=== PATIENT | male | born 1945 | race Caucasian/White ===

== ENCOUNTER 2017-03-26 19:32 | Day surgery (SDC) | payer MEDICARE, OTHER ==
[~2017-03-26] VITALS: Ht 195.6 cm; Wt 95.5 kg
[~2017-03-26 19:32] MED LIST: ACET-1890 PO; ESCI20TA PO; LISI1TAB7 PO; QUET200T PO
[2017-03-26] MEDS ORDERED: Succinylcholine Chloride 20 mg/mL 5 mL Inj ONE (19:33)
[2017-03-26] MEDS ORDERED: Propofol 10,000 mCg/mL 20 mL Inj ONE (19:33)
[2017-03-26 19:38] VITALS: BP 157/91; PULSE 72; RESP 17; O2SAT 98
--- NOTE | 2017-03-26 20:36 | ED.REPORT ---
HPI-General Illness Date of Service Mar 26, 2017 ED Provider: Ji Nolberto Patient is a 71 year old male who presents to the ED after being referred by urgent care complaining of food bolus being stuck in his throat for the past few hours. He was eating roast beef when the incident occurred and is now unable to swallow his saliva. He denies abdominal pain, trouble breathing, or any other symptoms. He has had similar symptoms previously and had his "esophagus stretched" in January. Nursing Notes Stated Complaint: FOOD/FLUIDS STICKING IN THROAT/[facility] Chief Complaint: General Complaint Nursing Notes Reviewed: Yes Allergies: Coded Allergies: No Known Allergies (Verified , 03/26/17) Scheduled Acetaminophen (Tylenol) 325 Mg Tablet 325 MG PO DAILY Atenolol (Atenolol) 25 Mg Tablet 25 MG PO DAILY Escitalopram Oxalate (Lexapro) 20 Mg Tablet 20 MG PO HS Lisinopril / HCTZ 10-12.5 mg (Lisinopril / HCTZ 10-12.5 mg) 1 Each Tablet 1 EACH PO HS Quetiapine Fumarate (Seroquel) 200 Mg Tablet 600 MG PO HS General Time Seen by MD: 20:36 Chief Complaint Other (Dysphagia) Hx Obtained From: Patient Arrived By: Walk-in Sudden in Onset?: Yes Onset Occurred: 1 - 4 hours ago Symptom Duration: Since onset Similar Sx Previous: Yes Past Medical History Past Medical History PTSD anxiety Reports: GERD, Hypertension Past Surgical History L hip replacement Brain tumor removal Kidney stone removal Hernia repair Family History Noncontributory Smoking History Former Smoker Social History Alcohol Use: 1-3 per day Drug Use: Denies drug use Other Social History: Ambulatory Status Independent Review of Systems +Food bolus in throat Full Review of Systems Respiratory: Denies: Shortness of breath GI: Reports: Dysphagia, Denies: Abdominal pain Complete sys rev & neg: except as marked. Physical Exam Vital Signs Vital Signs Date Time Temp Pulse Resp B/P Pulse Ox O2 Delivery O2 Flow Rate FiO2 03/27/17 00:20 63 16 145/89 95 Room Air 03/27/17 00:10 36.7 72 16 149/87 95 Room Air 03/27/17 00:01 73 16 156/93 95 Room Air 03/26/17 23:55 78 16 146/96 95 Room Air 03/26/17 23:55 Room Air 03/26/17 23:50 76 16 149/93 95 Room Air 03/26/17 23:48 36.6 75 16 149/93 100 Simple Mask 8 03/26/17 23:18 36.6 68 16 145/88 99 Room Air 03/26/17 23:07 36.6 72 16 167/93 98 Room Air 03/26/17 19:38 36.4 72 17 157/91 98 Room Air Initial VS: Reviewed General/Constitutional: Well-developed, Well-nourished Head / Eyes: Atraumatic, Normocephalic Neck: Full range of motion Abdomen / GI: Soft, Non-tender Skin: Warm, Dry Neurologic: Alert, Oriented, Nonfocal Psychiatric: Mood/affect normal, Behavior normal, Normal thought content Respiratory / Chest: Breath sounds NL, Breath sounds = bilat, No respiratory distress Lower Extremity / Pelvis / MS: No edema Re-Eval/Medical Decision Med Decision/Clinical Course 71-year-old presenting with an esophageal food impaction of relatively short duration. Following treatment with glucagon and carbonated beverage, he experienced vomiting which included some vomiting of bright red blood. Visible blood loss was minimal. Patient's esophageal food impaction subsequently resolved spontaneously and there was no more hematemesis. Was taken to endoscopy for further evaluation. Time of Eval: 21:17 Re-Evaluation/Progress Note: Rechecked pt. Spit up some blood. Will consult GI. Time of Eval: 22:21 Re-Evaluation/Progress Note: Pt. is no longer spitting up blood and thinks the food bolus has passed. Time of Eval: 22:42 Re-Evaluation/Progress Note: Patient is now able to swallow liquids. He had an episode of diarrhea without hematochezia. Discussed admission to Endo. Patient understands and agrees with plan. All questions addressed at this time. Consultation #1: Referral / Consult Name: Chu Tierney MD Call Returned at: 21:19 Screen Printing Inspector: Will see patient, Agrees with eval, Agrees with plan, Accepts admit Note: Discussed pt case with GI. Will see pt. Consultation #2: Referral / Consult Name: Chu Tierney MD Call Returned at: 22:50 Note: Informed GI MD that patient has cleared food bolus. Would still like to see pt. Counseled Regarding: Diagnosis, Need for follow-up, Need for admission Discharge & Departure Primary Impression: Food impaction of esophagus Encounter type: initial encounter Qualified Code: T18.128A - Food in esophagus causing other injury, initial encounter Additional Impression: Upper GI bleed Disposition: ADMITTED TO HOSPITAL Referrals: Haylee Rose PA-C (PCP) Scribe Attestation Portions of this note were transcribed by Jillian Puente. I, Dr. Workman personally performed the history, physical exam and medical decision-making; I reviewed and confirmed the accuracy of the information in the transcribed note. Signed by: Jillian Puente 03/26/2017, [id number] copies to: Haylee Rose PA-C, Donald L MD Mar 26, 2017 20:36 JILLIAN PUENTE Mar 26, 2017 20:45
[2017-03-26] MEDS ORDERED: Glucagon 1 mg/mL Inj IV ONE (20:40)
[2017-03-26] MEDS ORDERED: ATEN25TA PO (22:47)
[2017-03-26] MEDS ORDERED: Lactated Ringer's 1,000 ML IV ONE (23:00)
[2017-03-26 23:07] VITALS: BP 167/93; PULSE 72; RESP 16; O2SAT 98
[2017-03-26] MEDS ORDERED: Lactated Ringer's 500 ML IV PRN (23:09)
[2017-03-26] MEDS ORDERED: Lactated Ringer's 1,000 ML IV SCH (23:09)
--- NOTE | 2017-03-26 23:09 | PCM.HPANE ---
Patient Data Surgeon Admitting Provider: Attending Provider: Primary Care Physician:Haylee Rose PA-C Other Provider: Reason for Visit Food/Fluids Sticking In Throat/[facility] Ht/WT & BMI Height (Feet): 6 Height (Inches): 5.00 Weight (Kilograms): 95.450 Body Mass Index 24.00 Allergies Coded Allergies: No Known Allergies (Verified , 03/26/17) Past Anesthesia History Anesthesia History: Denies:: Abnormal Airway, Anesthesia Reactions, Difficult Intubation, Fam Anesthesia Reaction, Fam Malignant Hypertherm, Malignant Hyperthermia Diabetes History Hx Diabetes?: No MRSA MRSA: No Medications Reported Medications Atenolol 25 Mg [id number] Mg PO DAILY #30 TABLET Ref 0 03/26/17 Acetaminophen (Tylenol)325 Mg [id number] Mg PO DAILY HEADACHE 01/03/15 Quetiapine Fumarate (Seroquel)200 Mg [id number] Mg PO HS #30 TABLET Ref 0 01/03/15 Escitalopram Oxalate (Lexapro)20 Mg [id number] Mg PO HS 30 Days Ref 0 01/03/15 Lisinopril / HCTZ 10-12.5 mg 1 Each Tablet1 Each PO HS 30 Days Ref 0 01/03/15 History History of ENT Problems?: No HEENT History: Positive for:: Dysphagia (Hx of esophageal dilation) Denies:: Abnormal Airway Difficult Intubation Denture Type: None Teeth Condition: Within Normal Limits Missing Teeth Hx of Heart Problems?: Yes Cardiovascular History: Positive for:: Chest Pain (no CP) Hypertension Denies:: AICD Congestive Heart Failure Pacemaker Other History/Comments Greater than 4 mets Hx of Respiratory Problem?: Yes Respiratory History: Positive for:: Pneumonia (As a child) Denies:: Tuberculosis Hx Neurologic Problems?: Yes Neurological History: Positive for:: Seizures (in 1970 Tx w/ dilantin secondary to tumor removal no recurrence) Denies:: CVA Hx of GI Problems?: Yes Hx of Problems?: Yes Genitourinary History: Positive for:: Kidney Stones Male Hx: Denies:: Prostate Problems Scrotal Mass Testicular Surgery Skin History: Denies:: History Skin Disorders? Pressure Ulcers Hx Musculoskeletal Problems?: Yes Musculoskeletal History: Positive for:: Degenerative Joint (fam hips) Joint Replacement (left hip) Hx of Psycho/Social Problems?: Yes Psycho Social History: Positive for:: Anxiety Hx Depression (PTSD) Hx Surgeries?: Yes (brain tumor, kidney stones, hernia repair, left hip) Hx Any Other Health Problems?: Yes Other History: Denies:: Cancer Endocrine Disease Thyroid Disease History Blood Transfusions: Denies:: Blood Transfusions Hx Diabetes: No Hx Alcohol Use: Yes (2-3 drinks per day)Hx Substance Use: No Smoking Status: Former Smoker Have You Smoked inLast 12 mo: No (quit 1992) Stop/Bang Treated for Sleep Apnea?: No Do You Have a CPAP Machine?: No S-Snoring: Do You Snore Loudly: Yes T-Tired: feel tired, fatigued: No O-Obsered: Observed not breath: Yes P-Blood Pressure: treated: Yes B- Body Mass Index > 35 kg/m2: No A- Age over 50: Yes N- Neck Large Circumference: No G- Gender Male: Yes OMERO Total Score: 5 Risk Assessment Category Category 1A: Patient has history of documented sleep apnea, and HAS NOT received any narcotic, sedative or anesthesia administration during this stay. Category 1B: Patient has history of documented sleep apnea, and HAS received any narcotic , sedative or anesthesia administration during this stay Category 2: Patient has SUSPECTED Obstructive Sleep Apnea, and HAS received any narcotic , sedative or anesthesia administration during this stay. Category 3: Patient has SUSPECTED Obstructive Sleep Apnea and HAS NOT received narcotic, sedative or anesthesia administration during this stay. Category 4: Outpatient in Procedural Areas with known sleep apnea or who screen positive for High Risk via the STOP/BANG questionnaire. Exam Exam Vital Signs Vital Signs Date Time Temp Pulse Resp B/P Pulse Ox O2 Delivery O2 Flow Rate FiO2 03/26/17 19:38 36.4 72 17 157/91 98 Room Air General Appearance: Alert, Oriented X3 HEENT/AIRWAY: MP 2, Neck Movement (FROM) Lungs: Clear to Auscultation, Clear to Percussion Heart: Exam Unremarkable, Regular Rate/Rhythm Meds/Labs/Diagnostics Admission Meds Current Medications Glucagon 1 mg 1 mg ONCE ONCE IV Last administered on 03/26/17 20:52; Start at 20:40; Stop 03/26/17 at 20:41; Status DC Lactated Ringer's (Lr) 1,000 ml @ ud STK-MED ONCE IV Last administered on 03/26 23:00; Start 03/26/17 at 23:00; Stop 03/26/17 at 23:03; Status DC Plan Impression Patient chart reviewed, patient interviewed and anesthestic plan with risks, benefits, and alternatives discussed, and informed consent obtained. ASA Physical Status: ASA2 Mod Systemic Disease Anesthetic Plan: GA Bene/Risks/Altern/Consents: Yes HP Complete Prior to Induction: Yes Other Will do a GA since questionable food bolus Albert Meadows MD Mar 26, 2017 23:04
[2017-03-26] MEDS ORDERED: Phenylephrine 10,000 mCg/mL Inj IVPUSH PRN (23:10)
[2017-03-26] MEDS ORDERED: EPHEDrine Sulfate 50 mg/mL Inj IVPUSH PRN (23:10)
[2017-03-26] MEDS ORDERED: Atropine 0.4 mg/mL Inj IVPUSH PRN (23:10)
[2017-03-26] MEDS ORDERED: Ondansetron 2 mg/mL 2 mL Inj IVPUSH PRN (23:10)
[2017-03-26] MEDS ORDERED: Labetalol 5 mg/mL 4 mL Inj IV PRN (23:10)
[2017-03-26] MEDS ORDERED: HYDROmorphone 1 mg/mL Inj IVPUSH PRN (23:10)
[2017-03-26] MEDS ORDERED: MetoCLOpramide 5 mg/mL 2 mL Inj IVPUSH PRN (23:10)
[2017-03-26] MEDS ORDERED: fentaNYL-PF 50 mCg/mL 2 mL Inj IVPUSH PRN (23:10)
[2017-03-26 23:18] VITALS: BP 145/88; PULSE 68; RESP 16; O2SAT 99
[2017-03-26 23:48] VITALS: BP 149/93; PULSE 75; RESP 16; O2SAT 100
[2017-03-26 23:50] VITALS: BP 149/93; PULSE 76; RESP 16; O2SAT 95
[2017-03-26 23:55] VITALS: BP 146/96; PULSE 78; RESP 16; O2SAT 95
--- NOTE | 2017-03-26 23:55 | PCM.ANEP1 ---
Post Anesthesia Phase 1 PACU Phase 1 Assessment Vital Signs Vital Signs Date Time Temp Pulse Resp B/P Pulse Ox O2 Delivery O2 Flow Rate FiO2 03/26/17 23:18 36.6 68 16 145/88 99 Room Air 03/26/17 23:07 36.6 72 16 167/93 98 Room Air 03/26/17 19:38 36.4 72 17 157/91 98 Room Air Anesthetic Administered: GA Level of Alertness: Awake, talking MCCARTY's with Equal Strength: Yes Pain: No Nausea or Vomiting: No Cardiovascular Function and Hy: Yes Oxygen Delivery: Room Air Lungs: Clear to Auscultation, Clear to Percussion Comments See anesth record for PACU VS. PACU VSS Patient with difficult intubation on direct laryngoscopy. Easy intubation with glydescope 3 blade. No mask ventilation attempted. This information was discussed with the patient and patient's post-procedure. I recommended he have anesthesia at sites with advanced airway equipment such as a glydescope. Albert Meadows MD Mar 26, 2017 23:55
[2017-03-27 00:01] VITALS: BP 156/93; PULSE 73; RESP 16; O2SAT 95
[2017-03-27 00:10] VITALS: BP 149/87; PULSE 72; RESP 16; O2SAT 95
--- NOTE | 2017-03-27 00:11 | ER ---
[address] [address] EMERGENCY DEPARTMENT REPORT PATIENT: GLENNA CANTOR : 1945 MR#: [id number] ADMIT: 03/26/2017 JOB ID: [id number] DATE OF SERVICE: REASON FOR CONSULTATION: Food bolus obstruction and hematemesis. HISTORY OF PRESENTING ILLNESS: The patient is a 71-year-old gentleman who has a longstanding history of gastroesophageal reflux for which he takes Tums, and in January of this year reports undergoing upper endoscopy with esophageal dilation secondary to dysphagia. He was apparently well until this evening, when following a meal that consisted of roast beef and potatoes, he developed dysphagia and was unable to tolerate oral secretions. At that point, he attempted to drink liquids to try to get the food bolus down, however, this was unsuccessful; and therefore, he presented to the urgent care and then subsequently referred to the emergency department. In the emergency department, he was given glucagon, as well as lemon-quechan Deysi, and did not have any benefit, and at that point I was called for consultation. I had recommended endoscopic evaluation for food bolus obstruction. Upon my interview with him, he states the food bolus has passed and he is able to tolerate secretions. He did have two episodes of hematemesis which was described as bright red and measuring about a half a cup each episode. He has never had any hematemesis in the past. He has no history of chronic NSAID use. He denies any antiplatelets or anticoagulant use. He takes Tums as needed for heartburn, which is several times a week. PAST MEDICAL HISTORY: Significant for posttraumatic stress disorder and hypertension. PAST SURGICAL HISTORY: Includes hip surgery, abdominal hernia repair, and brain surgery as a child. SOCIAL HISTORY: He does drink two glasses of wine every night with meals, but denies any other alcohol use. He denies any tobacco use. He is retired and lives with his . HOME MEDICATIONS: Include lisinopril, hydrochlorothiazide, metoprolol, Seroquel. ALLERGIES: He has no known drug allergies. REVIEW OF SYSTEMS: His 12-point review of systems is otherwise negative except as mentioned in the HPI. He did report having a colonoscopy more than 15 years ago. PHYSICAL EXAMINATION: He is afebrile. His vital signs are stable. Generally: He is an elderly gentleman in no apparent distress. He is oriented to person, place, and time. Answers questions appropriately. HEENT: No pallor. No icterus. Oropharynx is clear. Chest exam is clear to auscultation bilaterally. Cardiovascular exam: S1, S2 heard. Abdomen: Soft, nontender, nondistended, without hepatosplenomegaly. Extremities without edema. No laboratory data to review. ASSESSMENT AND PLAN: A 71-year-old gentleman with a history of chronic gastroesophageal reflux, presenting with food bolus obstruction and also with hematemesis. I did discuss with the patient in depth regarding endoscopic evaluation to evaluate the etiology of his hematemesis and he was agreeable to proceed. I suspect this may be from ulceration in the esophagus from his recent food bolus versus Elena-Ho tear versus neoplasm, which is less likely. I would recommend additionally that patient be on a proton pump inhibitor daily rather than Tums as needed for control of heartburn. Thank for allowing me to participate in the patients care. If you have any further questions, please do not hesitate to contact me.
[2017-03-27 00:20] VITALS: BP 145/89; PULSE 63; RESP 16; O2SAT 95
--- NOTE | 2017-03-27 07:26 | ENDO ---
[address] [address] ENDOSCOPY PROCEDURE PATIENT: GLENNA CANTOR : 1945 MR#: [id number] ADMIT: 03/26/2017 JOB ID: [id number] DATE OF PROCEDURE: 03/26/2017 PROCEDURE: Esophagogastroduodenoscopy. INDICATION: Hematemesis and food bolus obstruction. SEDATION: Please see Dr. Glenna Meadows's anesthesia report for details regarding ASA classification, Mallampati score, and details regarding general anesthesia. INSTRUMENT USED: [id number]. PROCEDURE DETAILS: After informed consent was obtained, the patient was brought to the GI suite, where he was placed under general anesthesia for airway protection. He was then placed in the left lateral decubitus position and standard EGD scope was inserted through the bite block and advanced under direct visualization to the second portion of duodenum without difficulty. FINDINGS: 1. Normal appearing duodenal bulb, first and second portion. 2. Normal appearing pylorus. 3. Normal appearing antrum. 4. Retroflexed views in the gastric body revealed a normal appearing cardia. The fundus, however, was not completely visualized secondary to food debris that was present. The GE junction was at approximately 45 cm and at the GE junction and extending proximally the mucosa was ulcerated consistent with LA class C ulcerative esophagitis. No obvious stricture was appreciated on exam. The esophagus was otherwise unremarkable. IMPRESSION: LA class C ulcerative esophagitis. RECOMMENDATIONS: 1. Omeprazole 20 mg daily. 2. Reflux precautions. 3. Follow up with your laser machine operator within one month. COMPLICATIONS: None. ESTIMATED BLOOD LOSS: Zero.
== END 2017-03-27 00:44 ==
LOC: SED 19:32 → END 23:00 → SED 23:20 → END 03-27 00:44
PROVIDERS: ATTEND Internal Medicine Gastroenterology
DX: T18.128A Food in esophagus causing other injury, initial encounter (principal); X58.XXXA Exposure to other specified factors, initial encounter; K22.10 Ulcer of esophagus without bleeding; K92.2 Gastrointestinal hemorrhage, unspecified; Y93.89 Activity, other specified; Y92.9 Unspecified place or not applicable; Y99.9 Unspecified external cause status; I10 Essential (primary) hypertension; K21.9 Gastro-esophageal reflux disease without esophagitis; F43.10 Post-traumatic stress disorder, unspecified; Z87.891 Personal history of nicotine dependence
CPT/HCPCS: 43235; 96374; 99284; G0463; J0330; J1610; J7120